=== PATIENT | female | born 1940 | race Caucasian/White ===

== ENCOUNTER 2019-04-23 08:50 | Emergency (ER) | payer MEDICARE ==
[~2019-04-23] VITALS: Ht 160 cm; Wt 65.0 kg
[~2019-04-23 08:50] MED LIST: CEPH-571 PO; HYDR-4383 PO; MUPI15CR TOP
[2019-04-23 08:53] VITALS: BP 125/71
[2019-04-23] MEDS ORDERED: fluorescein sod 1mg ophthalmic strip EACHEYE ONE (09:25)
[2019-04-23] MEDS ORDERED: proparacaine 0.5% ophthalmic drops 15ml EACHEYE ONE (09:25)
[2019-04-23] MEDS ORDERED: diphenhydrAMINE 25mg capsule PO ONE (09:25)
[2019-04-23] MEDS ORDERED: famotidine 20mg tablet PO ONE (09:25)
[2019-04-23] MEDS ORDERED: predniSONE 20 mg tablet PO ONE (09:25)
[2019-04-23] MEDS ORDERED: DIPH28.33 TOP (10:21)
[2019-04-23] MEDS ORDERED: DIPH-423 PO (10:22)
== END 2019-04-23 10:30 | disposition home or self-care (01) ==
LOC: ER 08:50
DX: H10.13 Acute atopic conjunctivitis, bilateral (principal); Z79.2 Long term (current) use of antibiotics; Z79.899 Other long term (current) drug therapy
CPT/HCPCS: 99284; J7512; Q0163